=== PATIENT | female | born 1970 | race Two or more races ===

== ENCOUNTER 2024-08-25 18:46 | Emergency (ER) | payer OTHER ==
[2024-08-25] MEDS ORDERED: LIDOCAINE 1% 20 ML MDV ONE (19:10)
[2024-08-25] MEDS ORDERED: TDAP (DIPHTH,PERTUSS(ACELL),TET VAC) 0.5 ML VIAL IMVAC ONE (19:10)
--- NOTE | 2024-08-25 19:37 | RAD REPORT ---
EXAM: Hand Left 2 View HISTORY: SMASH INJURY COMPARISON: None FINDINGS: Bones: No acute fracture identified. Alignment:No significant malalignment. Degenerative changes:None significant. Other: No radiopaque foreign body. IMPRESSION: No evidence of acute osseous abnormality involving the imaged hand.
--- NOTE | 2024-08-25 20:43 | ER ---
Nurse's Notes [facility] Name: Donald Acuna Age: 53 yrs Sex: Female : 1970 Arrival Date: 08/25/2024 Time: 18:46 Bed 12 Private MD: Diagnosis: Laceration of blood vessel of left index finger Presentation: 08/25 18:56 Chief complaint: Patient states: she was cutting a lemon in a shukla and sliced open her kc6 left index finger and nail. Coronavirus screen: At this time, the client does not indicate any symptoms associated with coronavirus-19. Ebola Screen: No symptoms or risks identified at this time. Risk Assessment: Do you want to hurt yourself or someone else? Patient reports no desire to harm self or others. Onset of symptoms was August 25, 2024. 18:56 [facility] 18:56 Acuity: [facility] 19:16 Initial Sepsis Screen: Does the patient meet any 2 criteria? No. Patient's initial city hospital sepsis screen is negative. Does the patient have a suspected source of infection? No. Patient's initial sepsis screen is negative. 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 - Infectious Disease History:: Denies. - Social history:: Smoking status: Patient denies any tobacco usage or history of. Screenin:16 [facility] ED Fall Risk Assessment (Adult) History of falling in the last 3 months, kc6 including since admission No falls in past 3 months (0 pts) Confusion or Disorientation No (0 pts) Intoxicated or Sedated No (0 pts) Impaired Gait No (0 pts) Mobility Assist Device Used No (0 pt) Altered Elimination No (0 pt) Score/Fall Risk Level 0 - 2 = Low Risk Maintained a safe environment, Provided non-skid footwear, Hourly rounding (assess needs \T\ fall precautionary measures) done. Abuse screen: Denies threats or abuse. Nutritional screening: No deficits noted. Tuberculosis screening: No symptoms or risk factors identified. Assessment: 19:16 General: Appears comfortable, well groomed, well developed, well nourished, Behavior is kc6 calm, cooperative, appropriate for age, Reports she was cutting a lemon in a shukla and sliced open her left index finger and nail. Pain: Complains of pain in dorsal aspect of distal phalanx of left index finger and left index fingernail Pain does not radiate. Pain currently is 3 out of 10 on a pain scale. Quality of pain is described as throbbing, Pain began suddenly, Is continuous. Neuro: Level of Consciousness is awake, alert, obeys commands, Oriented to person, place, time, situation, Appropriate for age. Cardiovascular: Patient's skin is warm and dry. Respiratory: Airway is patent Respiratory effort is even, unlabored, Respiratory pattern is regular, symmetrical. GI: No signs and/or symptoms were reported involving the gastrointestinal system. : No signs and/or symptoms were reported regarding the genitourinary system. EENT: No signs and/or symptoms were reported regarding the EENT system. Derm: Skin is healthy with good turgor, Skin is pink, warm \T\ dry. Wound noted dorsal aspect of distal phalanx of left index finger and left index fingernail Wound is laceration. Musculoskeletal: Reports pain in dorsal aspect of distal phalanx of left index finger and left index fingernail. Injury Description: Laceration sustained to dorsal aspect of distal phalanx of left index finger is clean, a small amount of bleeding noted at this time. Vital Signs: 18:59 BP 139 / 94; Pulse 71; Resp 17 S; Pulse Ox 99% on R/A; Weight 69.85 kg (R); Height 5 kc6 ft. 7 in. (R); Pain 8/10; 20:42 BP 132 / 84; Pulse 73; Resp 15; Temp 98.7; Pulse Ox 99% ; me1 18:59 Body Mass Index 24.12 (69.85 kg, 170.18 cm) kc6 18:59 Pain Scale: Adult kc6 ED Course: 18:50 Patient arrived in ED. ra3 18:58 Triage completed. kc6 18:59 Arm band placed on. kc6 19:01 [facility] Dum[facility]C [facility] 19:01 Nehemiah Haskins MD is Attending Physician. dr5 19:07 Cande Saleem, RN is Primary Nurse. kc6 19:16 Patient has correct armband on for positive identification. Bed in low position. Call kc6 light in reach. Side rails up X2. Provided Education on: POC. Verbalized understanding. 19:16 No provider procedures requiring assistance completed. Patient did not have IV access kc6 during this emergency room visit. 19:25 Hand Left 2 View XRAY: Left index finger In Process Unspecified. EDMS Administered Medications: 19:16 Drug: Boostrix Tdap IM 0.5 ml IM once; as a single dose Route: IM; Site: left deltoid; kc6 19:21 Follow up: Response: No adverse reaction kc6 19:22 Drug: Lidocaine Infiltration (1 %) 20 ml 20 ml Infiltration once; to bedside {Note: kc6 Administered by BLANCA Crump.} Volume: 20 ml; Route: Infiltration; 20:42 Follow up: Response: No adverse reaction; Pain is decreased me1 Medication: 19:16 VIS not applicable for this client. kc6 Outcome: 20:42 Discharge ordered by . dr5 20:52 Discharged to home ambulatory, me1 20:52 Condition: stable 20:52 Discharge instructions given to patient, significant other, Instructed on discharge instructions, follow up and referral plans. medication usage, wound care, Demonstrated understanding of instructions, follow-up care, medications, wound care, Prescriptions given X 1, 20:53 Patient left the ED. me1 Signatures: Dispatcher [employer] EDMS Cande Saleem RN RN kc6 Destinee Zhou RN RN me1 Marisel Bender 3 Amilcar Dumont FNP-C BLANCA-Cdr5 Corrections: (The following items were deleted from the chart) 19:16 18:56 Chief complaint: Patient states: she was cutting a lemon in a shukla and sliced kc6 open her left index finger and nail kc6
--- NOTE | 2024-08-25 20:43 | EDPHYS ---
Physician Documentation [facility] Name: Donald Acuna Age: 53 yrs Sex: Female : 1970 Arrival Date: 08/25/2024 Time: 18:46 Bed 12 Private MD: ED Physician Nehemiah Haskins HPI: 08/25 22:38 This 53 yrs old [place] Female presents to ER via Ambulatory with complaints of Hand dr5 Injury - Laceration to Index finger. 22:38 The patient or guardian reports a laceration, complex, clean, 3 cm(s). The complaints dr5 affect the dorsal aspect of distal phalanx of left index finger and palmar aspect of distal phalanx of left index finger. Context: The problem was sustained at work, resulted from Sharp Knife. Onset: The symptoms/episode began/occurred acutely, just prior to arrival. Pt is a 53 year old female with hx of HTN and Anxiety coming in for laceration to left index finger that occurred at work with a knife. Last tetanus is unknown.. 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 - Infectious Disease History:: Denies. - Social history:: Smoking status: Patient denies any tobacco usage or history of. ROS: 22:38 Constitutional: as per hpi dr5 Exam: 22:38 Constitutional: This is a well developed, well nourished patient who is awake, alert, dr5 and in no acute distress. Head/Face: Normocephalic, atraumatic. ENT: Nares patent. No nasal discharge, no septal abnormalities noted. Tympanic membranes are normal and external auditory canals are clear. Oropharynx with no redness, swelling, or masses, exudates, or evidence of obstruction, uvula midline. Mucous membranes moist. Neck: Trachea midline, no thyromegaly or masses palpated, and no cervical lymphadenopathy. Supple, full range of motion without nuchal rigidity, or vertebral point tenderness. No Meningismus. Chest/axilla: Normal chest wall appearance and motion. Nontender with no deformity. No lesions are appreciated. Respiratory: Lungs have equal breath sounds bilaterally, clear to auscultation. No rales, rhonchi or wheezes noted. No increased work of breathing, no retractions or nasal flaring. Back: No spinal tenderness. No costovertebral tenderness. Full range of motion. 22:38 Skin: injury, laceration(s), the wound is approximately 3 cm(s), of the dorsal aspect of distal phalanx of left index finger and palmar aspect of distal phalanx of left index finger, 22:38 Neuro: Exam negative for acute changes, Vital Signs: 18:59 BP 139 / 94; Pulse 71; Resp 17 S; Pulse Ox 99% on R/A; Weight 69.85 kg (R); Height 5 kc6 ft. 7 in. (R); Pain 8/10; 20:42 BP 132 / 84; Pulse 73; Resp 15; Temp 98.7; Pulse Ox 99% ; me1 18:59 Body Mass Index 24.12 (69.85 kg, 170.18 cm) kc6 18:59 Pain Scale: Adult kc6 Laceration: 22:38 Wound Repair of 3cm ( 1.2in ) subcutaneous laceration to dorsal aspect of distal dr5 phalanx of left index finger and palmar aspect of distal phalanx of left index finger. Distal neuro/vascular/tendon intact. Anesthesia: Digital block administered with 2 mls of 1% lidocaine. Wound prep: Extensive cleansing with hibiclenz by nurse, Wound irrigation, Copious irrigation. Skin closed with 7 5-0 Prolene using simple sutures and sterile technique. Dressed with Bacitracin, non-adherent dressing. Patient tolerated well. MDM: 19:03 Medical Screening Exam initiated dr5 22:38 Differential diagnosis: open fracture, closed fracture, contusion, abrasion, dr5 Laceration. Data reviewed: vital signs, nurses notes. I considered the following discharge prescriptions or medication management in the emergency department Medications were administered in the Emergency Department. See MAR. Historians other than the Patient: Spouse/Significant Other: . Care significantly affected by the following chronic conditions: Hypertension, Anxiety. Care significantly affected by the following Social Determinants of Health: Poor access to healthcare and/or lack of insurance, Poor access to transportation, Problems related to employment. Counseling: I had a detailed discussion with the patient and/or guardian regarding the historical points, exam findings, and any diagnostic results supporting the discharge/admit diagnosis, the presence of at least one elevated blood pressure reading (>120/80) during this emergency department visit, the need for outpatient follow up, for definitive care, a family practitioner, to return to the emergency department if symptoms worsen or persist or if there are any questions or concerns that arise at home. ED course: Lack repair completed in ER with no complications. Will have patient return in 7 to 10 days for suture removal. Keflex given for infection prophylaxis. Tetanus updated in ER today. Keep wounds clean and dry. May use soap and water and tap dry. All questions answered.. 08/25 19:03 Order name: Hand Left 2 View XRAY: Left index finger; Complete Time: 19:59 [facility] 08/25 19:02 Order name: Dressing - Wound; Complete Time: 20:42 dr5 08/25 19:02 Order name: Gloves, Sterile; Complete Time: 19:16 dr5 08/25 19:02 Order name: Prolene, Sutures: 5-0 prolene; Complete Time: 19:16 dr5 08/25 19:02 Order name: Setup Suture Tray; Complete Time: 19:16 dr5 Administered Medications: 19:16 Drug: Boostrix Tdap IM 0.5 ml IM once; as a single dose Route: IM; Site: left deltoid; kc6 19:21 Follow up: Response: No adverse reaction kc6 19:22 Drug: Lidocaine Infiltration (1 %) 20 ml 20 ml Infiltration once; to bedside {Note: kc6 Administered by BLANCA Crump.} Volume: 20 ml; Route: Infiltration; 20:42 Follow up: Response: No adverse reaction; Pain is decreased me1 Disposition Summary: 08/25/24 20:42 Discharge Ordered Notes: Location: Home dr5 Condition: Stable dr5 Diagnosis - Laceration of blood vessel of left index finger dr5 Followup: dr5 - With: Emergency Department - When: As needed - Reason: Worsening of condition Followup: dr5 - With: Private Physician - When: 1 - 2 days - Reason: Recheck today's complaints, Continuance of care, Re-evaluation by your physician Discharge Instructions: - Discharge Summary Sheet dr5 Forms: - Medication Reconciliation Form dr5 - Antibiotic Education dr5 - Patient Portal Instructions dr5 - Leadership Thank You Letter dr5 Prescriptions: - Cephalexin 500 mg Oral Capsule - take 1 capsule ORAL route every 6 hours for 10 days; 40 capsule; Refills: 0, dr5 Product Selection Permitted Addendum: 08/27/2024 19:23 Co-signature as Attending Physician, Nehemiah Haskins MD I reviewed the patient's care r n provided by the Advanced Practice Provider and agree with the diagnosis and treatment plan. Signatures: Dispatcher [employer] Nehemiah Block MD MD rn Campbell, Kaitlyn, RN RN kc6 Amilcar Dumont, SHINGLE SAWYER-C [facility]LE [facility]WYER-[facility]5 Destinee Zhou RN me1
[2024-08-26 00:52] VITALS: O2SAT 99
[2024-08-26 00:56] VITALS: BP 132/84; TEMP 98.7
== END 2024-08-25 20:53 | disposition home or self-care (01) ==
LOC: ER 18:46
DX: S65.511A Laceration of blood vessel of left index finger, initial encounter (principal); W26.0XXA Contact with knife, initial encounter; Y99.0 Civilian activity done for income or pay
CPT/HCPCS: 73120; 96372; 99284; 12042; J2003

== ENCOUNTER 2024-09-02 19:07 | Emergency (ER) | payer OTHER ==
--- NOTE | 2024-09-02 19:34 | ER ---
Nurse's Notes [facility] Name: Donald Acuna Age: 53 yrs Sex: Female : 1970 Arrival Date: 09/02/2024 Time: 19:07 Bed IW4 Private MD: Diagnosis: Encounter for removal of sutures Presentation: 09/02 19:19 Chief complaint: Patient states: HERE TO HAVE SUTURES REMOVED TO LEFT INDEX FINGER cm10 PLACED ON 08/25. PT HAS 7 SUTURES TO LEFT INDEX FINGER. Coronavirus screen: Client denies travel out of the [place] in the last 14 days. Ebola Screen: Patient denies travel to an Ebola-affected area in the 21 days before illness onset. No symptoms or risks identified at this time. Initial Sepsis Screen: Does the patient meet any 2 criteria? No. Patient's initial sepsis screen is negative. Does the patient have a suspected source of infection? No. Patient's initial sepsis screen is negative. Risk Assessment: Do you want to hurt yourself or someone else? Patient reports no desire to harm self or others. Onset of symptoms was September 02, 2024. 19:19 Method Of Arrival: Ambulatory cm10 19:19 Acuity: GELY 5 cm10 Triage Assessment: 19:20 General: Appears in no apparent distress. comfortable, Behavior is calm, cooperative. cm10 Pain: Denies pain. Neuro: No deficits noted. Level of Consciousness is awake, alert, obeys commands, Oriented to person, place, time, situation, Appropriate for age. Respiratory: No deficits noted. Airway is patent Respiratory effort is even, unlabored, Respiratory pattern is regular, symmetrical. 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 - Infectious Disease History:: Denies. - Social history:: Smoking status: unknown. Screenin:20 [facility] ED Fall Risk Assessment (Adult) History of falling in the last 3 months, cm10 including since admission No falls in past 3 months (0 pts) Confusion or Disorientation No (0 pts) Intoxicated or Sedated No (0 pts) Impaired Gait No (0 pts) Mobility Assist Device Used No (0 pt) Altered Elimination No (0 pt) Score/Fall Risk Level 0 - 2 = Low Risk Oriented to surroundings, Maintained a safe environment, Hourly rounding (assess needs \T\ fall precautionary measures) done. Abuse screen: Denies threats or abuse. Denies injuries from another. Nutritional screening: No deficits noted. Tuberculosis screening: No symptoms or risk factors identified. Vital Signs: 19:19 BP 142 / 82; Pulse 69; Resp 16; Temp 97.4; Pulse Ox 100% on R/A; Weight 69.85 kg; cm10 Height 5 ft. 7 in. ; Pain 0/10; 19:19 Body Mass Index 24.12 (69.85 kg, 170.18 cm) cm10 19:19 Pain Scale: Adult cm10 ED Course: 19:09 Patient arrived in ED. im 19:20 Triage completed. cm10 19:20 Arm band placed on right wrist. Patient placed in waiting room. cm10 19:20 Patient has correct armband on for positive identification. Provided Education on: ER cm10 PROCESS AND PROCEDURES.. 19:21 No provider procedures requiring assistance completed. Patient did not have IV access cm10 during this emergency room visit. Removal of Removed sutures from left index finger Suture site is well healed Patient tolerated well. 19:22 Mega Feliz MD is Attending Physician. landon 19:22 Emi Bateman FNP-C [facility] merary Administered Medications: No medications were administered Medication: 19:20 VIS not applicable for this client. cm10 Outcome: 19:24 Discharged to home ambulatory, cm10 19:24 Condition: good 19:24 Discharge instructions given to patient, Instructed on discharge instructions, follow up and referral plans. Demonstrated understanding of instructions, follow-up care, 19:33 Discharge ordered by . merary 19:39 Patient left the ED. cm10 Signatures: Emi Bateman FNP-C FNP-Mega Landis MD MD cha Mendoza, Itzel im Martinez, Clarissa, RN RN cm10
--- NOTE | 2024-09-02 19:34 | EDPHYS ---
Physician Documentation [facility] Name: Donald Acuna Age: 53 yrs Sex: Female : 1970 Arrival Date: 09/02/2024 Time: 19:07 Bed IW4 Private MD: ED Physician Mega Feliz HPI: 09/02 21:03 This 53 yrs old [place] Female presents to ER via Ambulatory with complaints of Suture kb Removal. 21:03 Pt is a 53 year old female who presents to have sutures removed from left index finger. kb States she had them put in 8 days ago. Denies any problems, swelling, drainage, fever. . 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 - Infectious Disease History:: Denies. - Social history:: Smoking status: unknown. ROS: 21:04 Constitutional: As per HPI kb Exam: 21:04 Constitutional: This is a well developed, well nourished patient who is awake, alert, kb and in no acute distress. Head/Face: Normocephalic, atraumatic. ENT: Moist Mucous membranes Respiratory: Respirations even and unlabored. No increased work of breathing. Talking in full sentences MS/ Extremity: Pulses equal, no cyanosis. Neurovascular intact. Full, normal range of motion. Neuro: Awake and alert, GCS 15, oriented to person, place, time, and situation. 21:04 Skin: Wound recheck: Suture laceration closure: the wound is healing well, the edges are well approximated, no evidence of dehiscence, no drainage, no erythema, no swelling, Vital Signs: 19:19 BP 142 / 82; Pulse 69; Resp 16; Temp 97.4; Pulse Ox 100% on R/A; Weight 69.85 kg; cm10 Height 5 ft. 7 in. ; Pain 0/10; 19:19 Body Mass Index 24.12 (69.85 kg, 170.18 cm) cm10 19:19 Pain Scale: Adult cm10 Procedures: 19:33 Suture/Staple removal: Removed 7 sutures, from left index finger, site appears well kb healed, dressed with band aid, Patient tolerated well. MDM: 19:22 Medical Screening Exam initiated [facility] 19:22 Medical Screening Exam initiated 19:33 Data reviewed: vital signs, nurses notes. 21:04 Counseling: I had a detailed discussion with the patient and/or guardian regarding the kb historical points, exam findings, and any diagnostic results supporting the discharge/admit diagnosis, the need for outpatient follow up, a family practitioner, to return to the emergency department if symptoms worsen or persist or if there are any questions or concerns that arise at home. Administered Medications: No medications were administered Disposition Summary: 09/02/24 19:33 Discharge Ordered Notes: Location: Home kb Condition: Stable kb Diagnosis - Encounter for removal of sutures kb Followup: kb - With: Emergency Department - When: As needed - Reason: Worsening of condition Followup: kb - With: Private Physician - When: 2 - 3 days - Reason: Recheck today's complaints, Continuance of care, Re-evaluation by your physician Discharge Instructions: - Discharge Summary Sheet kb - Suture Removal, Care After kb Forms: - Medication Reconciliation Form kb - Antibiotic Education kb - Prescription Opioid Use kb - Patient Portal Instructions kb - Leadership Thank You Letter kb Signatures: Emi Bateman, J2EE JAVA DEVELOPER-C J2EE JAVA DEVELOPER-Mega Landis MD MD cha Martinez, Clarissa, RN RN cm10
[2024-09-02 20:10] VITALS: BP 142/82; TEMP 97.4; O2SAT 100
== END 2024-09-02 19:39 | disposition home or self-care (01) ==
LOC: ER 19:07
DX: Z48.02 Encounter for removal of sutures (principal)
CPT/HCPCS: 99283